=== PATIENT | male | born 1955 | race Hispanic/Latino ===

== ENCOUNTER 2022-05-10 07:56 | Observation (INO) | payer MEDICARE ==
[2022-05-05 15:43] VITALS: BP 157/86
[2022-05-05 16:02] LABS: BASOPHILS % (AUTO) 0.8 % (0.0-5.0); HEMATOCRIT 43.9 % (42-54); LYMPHOCYTES % (AUTO) 29.4 % (21.0-51.0); MEAN CORPUSCULAR HEMOGLOBIN 31.3 pg (27.0-33.0); MEAN CORPUSCULAR HGB CONC 34.2 g/dL (32.0-36.0); MEAN CORPUSCULAR VOLUME 91.5 fL (79-99); MONOCYTES % (AUTO) 9.5 % (3.0-13.0); PLATELET COUNT (AUTO) 308 K/uL (130-400); RED CELL DISTRIBUTION WIDTH 12.2 % (11.0-15.5); WHITE BLOOD COUNT (AUTO) 9.1 K/uL (4.8-10.8)
[2022-05-05 16:12] LABS: CREATININE 1.1 mg/dL (0.5-1.5); POTASSIUM 4.6 mmol/L (3.5-5.1)
[2022-05-05 16:15] LABS: INR 0.97 (0.85-1.15); PROTHROMBIN TIME 10.6 SEC (9.6-11.6)
[2022-05-05 16:17] LABS: PARTIAL THROMBOPLASTIN TIME 27.3 SEC (26.3-35.5)
[2022-05-10] VITALS (19 sets, daily range): BP systolic 112–147; BP diastolic 66–87
[~2022-05-10] VITALS: Ht 188 cm; Wt 97.2 kg
[~2022-05-10 07:56] MED LIST: ACET-2079 PO; CLON2TAB11 PO; GABA600T10 PO; LISI1TAB51 PO; ZOLP10TA2 PO; ZONI100C87 PO
[2022-05-10] MEDS ORDERED: LACTATED RINGERS 1000ML 1,000 ML IV ONE (08:09)
[2022-05-10] MEDS: CEFAZOLIN SODIUM 2 GM VIAL ONE ×2 (08:31→13:57)
[2022-05-10 09:09] LABS: POTASSIUM 3.8 mmol/L (3.5-5.1)
[2022-05-10] MEDS ORDERED: ROPIVACAINE 0.5% 5MG/ML 30ML IJ ONE (09:33)
[2022-05-10] MEDS ORDERED: TRANEXAMIC ACID 1000MG/10ML ONE ×3 (10:34→15:25)
[2022-05-10] MEDS ORDERED: SUCCINYLCHOLINE CHLORIDE 20 MG/ML 10 ML VIAL ONE (11:02)
[2022-05-10] MEDS ORDERED: LIDOCAINE PF 100MG/5ML (2%) SYRINGE 5ML ONE (11:02)
[2022-05-10] MEDS ORDERED: DEXAMETHASONE SOD PHOSPHATE 10MG/ML 1ML VIAL ONE (11:03)
[2022-05-10] MEDS ORDERED: ONDANSETRON 4MG INJ ONE (11:03)
[2022-05-10] MEDS ORDERED: MIDAZOLAM HCL 1 MG/ML 2ML VIAL ONE (11:03)
[2022-05-10] MEDS ORDERED: NEOSTIGMINE 5MG/5ML SYR IV ONE ×2 (11:03→16:36)
[2022-05-10] MEDS ORDERED: GLYCOPYRROLATE 1 MG/5 ML SYRINGE ONE ×2 (11:03→16:36)
[2022-05-10] MEDS ORDERED: PROPOFOL 10 MG/ML 20ML VIAL IV ONE (11:03)
[2022-05-10] MEDS ORDERED: ROCURONIUM 10MG/1ML SYR 10 MG/ML ML ONE ×2 (11:04→15:23)
[2022-05-10] MEDS ORDERED: FENTANYL CITRATE PF 50 MCG/1 ML 2ML VIAL ONE ×2 (11:04→14:29)
[2022-05-10] MEDS ORDERED: OXYCODONE HCL 5 MG TAB PO PRN (14:00)
[2022-05-10] MEDS ORDERED: 0.9%NACL 1000ML 1,000 ML IV SCH (14:00)
[2022-05-10] MEDS ORDERED: MORPHINE 4 MG SYG IVP PRN (14:00)
[2022-05-10] MEDS ORDERED: POTASSIUM CHLORIDE 20MEQ/100ML 100 ML IV PRN (14:00)
[2022-05-10] MEDS ORDERED: ONDANSETRON 4MG INJ IVP PRN (14:00)
[2022-05-10] MEDS ORDERED: POTASSIUM CHLORIDE 10% ELIXIR 20 MEQ/15 ML UDCUP PO PRN (14:00)
[2022-05-10] MEDS ORDERED: LIDOCAINE HCL-MPF 1% 2ML VIAL IV PRN (14:00)
[2022-05-10] MEDS ORDERED: KCL 20 MEQ ERTAB PO PRN (14:00)
[2022-05-10] MEDS ORDERED: MEPERIDINE-PF 25 MG/ML SYG ONE (17:20)
[2022-05-10] MEDS: ACETAMINOPHEN 1,000 MG/100 ML VIAL IV SCH ×2 (17:21→20:20)
[2022-05-10] MEDS: OXYCODONE HCL 5 MG TAB PO PRN (18:03)
[2022-05-10] MEDS: GABAPENTIN 300 MG CAPSULE PO SCH (20:20)
[2022-05-10] MEDS: FAMOTIDINE 20MG TAB PO SCH (20:20)
[2022-05-10] MEDS: ZOLPIDEM TARTRATE 5 MG TAB PO SCH (20:20)
[2022-05-10] MEDS: CLONAZEPAM 2 MG TABLET PO SCH (20:20)
[2022-05-10] MEDS: CEFAZOLIN SODIUM 1 GM VIAL IVP SCH (20:21)
[2022-05-10] MEDS: ZONISAMIDE 100 MG CAP PO SCH (20:25)
[2022-05-10] MEDS: IBUPROFEN 800MG + NS 250ML IV SCH (22:34)
[2022-05-11] MEDS: ACETAMINOPHEN 1,000 MG/100 ML VIAL IV SCH (01:27)
[2022-05-11] MEDS: OXYCODONE HCL 5 MG TAB PO PRN ×5 (01:30→20:34)
[2022-05-11] MEDS: CEFAZOLIN SODIUM 1 GM VIAL IVP SCH (04:33)
[2022-05-11 04:35] VITALS: BP 121/82
[2022-05-11 04:36] LABS: HEMATOCRIT 31.5 % (42-54); MEAN CORPUSCULAR HEMOGLOBIN 31.4 pg (27.0-33.0); MEAN CORPUSCULAR VOLUME 92.4 fL (79-99); RED BLOOD CELL COUNT(AUTO) 3.41 MIL/uL (4.50-6.20); RED CELL DISTRIBUTION WIDTH 12.1 % (11.0-15.5); WHITE BLOOD COUNT (AUTO) 10.7 K/uL (4.8-10.8)
[2022-05-11 05:00] LABS: CREATININE 0.9 mg/dL (0.5-1.5); POTASSIUM 4.1 mmol/L (3.5-5.1)
[2022-05-11] MEDS: IBUPROFEN 800MG + NS 250ML IV SCH ×2 (06:31→09:00)
[2022-05-11 08:12] VITALS: BP 114/58
[2022-05-11] MEDS: POLYETHYLENE GLYCOL 3350 17 GM POWD.PACK PO SCH (08:47)
[2022-05-11] MEDS: LISINOPRIL 20 MG TABLET PO SCH (08:47)
[2022-05-11] MEDS: ASPIRIN 81 MG EC TAB PO SCH (08:47)
[2022-05-11] MEDS: FAMOTIDINE 20MG TAB PO SCH ×2 (08:47→20:29)
[2022-05-11 11:36] VITALS: BP 114/59
[2022-05-11 15:55] VITALS: BP 132/76
[2022-05-11] MEDS: ZONISAMIDE 100 MG CAP PO SCH (20:28)
[2022-05-11] MEDS: CLONAZEPAM 2 MG TABLET PO SCH (20:28)
[2022-05-11] MEDS: ZOLPIDEM TARTRATE 5 MG TAB PO SCH (20:29)
[2022-05-11] MEDS: GABAPENTIN 300 MG CAPSULE PO SCH (20:30)
[2022-05-11 20:50] VITALS: BP 136/74
[2022-05-11 23:24] VITALS: BP 134/71
[2022-05-12] MEDS: OXYCODONE HCL 5 MG TAB PO PRN ×4 (01:36→15:59)
[2022-05-12 03:50] VITALS: BP 138/75
[2022-05-12 07:30] VITALS: BP 131/73
[2022-05-12] MEDS: FAMOTIDINE 20MG TAB PO SCH (07:53)
[2022-05-12] MEDS: POLYETHYLENE GLYCOL 3350 17 GM POWD.PACK PO SCH (07:53)
[2022-05-12] MEDS: ASPIRIN 81 MG EC TAB PO SCH (07:53)
[2022-05-12] MEDS: LISINOPRIL 20 MG TABLET PO SCH (07:54)
[2022-05-12 11:35] VITALS: BP 147/74
[2022-05-12 15:45] VITALS: BP 151/76
[2022-05-13] MEDS ORDERED: BISACODYL 10 MG SUPP.RECT RC PRN (14:00)
== END 2022-05-12 16:35 | disposition home or self-care (01) ==
LOC: DAH 07:56 → DAHIP 07:57 → 4BH 17:40
PROVIDERS: ADMIT Orthopaedic Surgery; ATTEND Orthopaedic Surgery
DX: M19.011 Primary osteoarthritis, right shoulder (principal); Z20.822 Contact with and (suspected) exposure to COVID-19; G40.909 Epilepsy, unspecified, not intractable, without status epilepticus; I10 Essential (primary) hypertension; Z79.899 Other long term (current) drug therapy
CPT/HCPCS: 80048 ×3; 85025; 85610; 85730; 87426; 36415 ×3; 93005; 23472; 96376 ×2; 96365; 96375 ×2; 64415; 73030; 96366; 85027; 97161; 97116; 97530 ×3; 97039; A4649 ×5; A6260; G0378 ×46; A4663; J7120 ×2; A4565; C1713 ×2; C1776; J3010; J0690 ×3; J3490 ×5; J1100; J2710 ×2; J0330; J2001; J2250; J2704; J2405; J2175; J2795; J1741; A6223; A6219; G0168; A4215; A4223; A4222; A4221; A4600; J2270; 76942; 96372

== ENCOUNTER 2022-06-07 13:25 | Emergency (ER) | payer MEDICARE ==
[~2022-06-07] VITALS: Ht 180.3 cm; Wt 93.0 kg
[~2022-06-07 13:25] MED LIST changes: -ZOLP10TA2 PO
[2022-06-07 13:36] VITALS: BP 142/86
[2022-06-07 14:15] LABS: BASOPHILS % (AUTO) 0.8 % (0.0-5.0); EOSINOPHILS % (AUTO) 2.5 % (0.0-8.0); HEMATOCRIT 40.1 % (42-54); LYMPHOCYTES % (AUTO) 25.9 % (21.0-51.0); MEAN CORPUSCULAR HEMOGLOBIN 30.6 pg (27.0-33.0); MEAN CORPUSCULAR HGB CONC 32.9 g/dL (32.0-36.0); MONOCYTES % (AUTO) 7.6 % (3.0-13.0); NEUTROPHILS % (AUTO) 62.6 % (40.0-77.0); PLATELET COUNT (AUTO) 283 K/uL (130-400); RED BLOOD CELL COUNT(AUTO) 4.31 MIL/uL (4.50-6.20); RED CELL DISTRIBUTION WIDTH 13.2 % (11.0-15.5); WHITE BLOOD COUNT (AUTO) 7.3 K/uL (4.8-10.8)
[2022-06-07 14:16] LABS: APPEARANCE,URINE CLEAR (CLEAR); BILIRUBIN,URINE NEGATIVE (NEGATIVE); COLOR,URINE LIGHT-YELLOW (YELLOW); GLUCOSE, URINE (UA) NEGATIVE (NEGATIVE); KETONES,URINE NEGATIVE (NEGATIVE); LEUKOCYTE ESTERASE ,URINE NEGATIVE Leu/uL (NEGATIVE); NITRATE,URINE NEGATIVE (NEGATIVE); OCCULT BLOOD,URINE NEGATIVE (NEGATIVE); PROTEIN,URINE NEGATIVE (NEGATIVE); UROBILINOGEN,URINE 0.2 mg/dL (0.2-1.0)
[2022-06-07 14:24] LABS: MUCUS,URINE RARE LPF (None Seen); OTHER CASTS, URINE 1 /LPF (None Seen); RBC,URINE 0-1 /HPF (0-1); WBC,URINE 0-1 /HPF (0-1)
[2022-06-07 14:37] LABS: POTASSIUM 4.1 mmol/L (3.5-5.1)
[2022-06-07 14:42] LABS: ALBUMIN 3.4 g/dL (3.5-5.0); TOTAL PROTEIN, SERUM 7.3 g/dL (6.0-8.3)
== END 2022-06-07 14:52 | disposition home or self-care (01) ==
LOC: EDH 13:25
DX: G40.909 Epilepsy, unspecified, not intractable, without status epilepticus (principal); E78.00 Pure hypercholesterolemia, unspecified; Z79.899 Other long term (current) drug therapy; Z98.890 Other specified postprocedural states
CPT/HCPCS: 36415; 80053; 81001; 85025